=== PATIENT | male | born 1955 | race Hispanic/Latino ===

== ENCOUNTER → 2023-02-25 | Emergency (ER) | payer OTHER ==
[~2023-02-25] VITALS: Ht 170.2 cm; Wt 76.2 kg
[~2023-02-25] MED LIST: CEFAZOLIN SODIUM 1 GM VIAL IM SCH; TETANUS/DIPHTHERIA TOXOID [ADULT] 0.5 ML VIAL IM ONE
[2023-02-25 20:10] VITALS: O2SAT 98
[2023-02-25 20:11] VITALS: BP 136/76; PULSE 64; RESP 18
== END ==
LOC: EDH 20:08 → EDBD 20:08
DX: S61.212A Laceration without foreign body of right middle finger without damage to nail, initial encounter (principal); I10 Essential (primary) hypertension; W45.8XXA Other foreign body or object entering through skin, initial encounter; Y93.89 Activity, other specified; Y92.89 Other specified places as the place of occurrence of the external cause; Y99.8 Other external cause status
CPT/HCPCS: 12001; 73140; 90471; 90714; 96372; J0690